=== PATIENT | female | born 1975 ===

== ENCOUNTER 2021-03-26 18:11 | Emergency (ER) | payer BC, OTHER ==
[~2021-03-26] VITALS: Ht 177.8 cm; Wt 95.3 kg
--- NOTE | 2021-03-26 18:20 | NUR ---
Pt BIB [facility] 84 for [place] a [place]. Per EMS pt was found agitated and intoxicated and yelling at bystanders. Per EMS pt also had 5 year old son with her and son is currently with [employer]. [employer] noted to be with pt, and handcuffed on bilateral wrist. No open wounds noted to wrist area from hand cuffs. Pt noted to be altered and agitated, unable to redirect or follow simple commands. Dr. Brown at bedside upon arrival.
--- NOTE | 2021-03-26 18:22 | NUR ---
Ann placed on 4 pt restraints per MD order.
--- NOTE | 2021-03-26 18:26 | NUR ---
code rodriguez called.
--- NOTE | 2021-03-26 18:26 | NUR ---
ANAIS Franklin [id number] and Bon [id number] at bedside.
[2021-03-26] MEDS ORDERED: OLANZAPINE 10 MG VIAL IM ONE ×2 (18:27→18:30)
[2021-03-26] MEDS ORDERED: IV NORMAL SALINE 1000 ML BAG IV ONE (18:30)
--- NOTE | 2021-03-26 18:40 | NUR ---
Dr. Johnson came to bedside.
[2021-03-26 18:46] LABS: BASOPHILS # (AUTO) 0.1 K/uL (0.0-8.0); BASOPHILS % (AUTO) 0.6 % (0.0-2.0); EOSINOPHILS # (AUTO) 0.2 K/uL (0.0-0.7); EOSINOPHILS % (AUTO) 1.8 % (0.0-7.0); HEMATOCRIT 38.5 % (31.2-41.9); LYMPHOCYTES # (AUTO) 2.8 K/uL (20.0-40.0); MEAN CORPUSCULAR HEMOGLOBIN 32.3 uug (24.7-32.8); MEAN CORPUSCULAR HGB CONC 34 g/dL (32.3-35.6); MEAN CORPUSCULAR VOLUME 95.6 fL (75.5-95.3); MONOCYTES # (AUTO) 0.4 K/uL (2.0-10.0); MONOCYTES % (AUTO) 4.3 % (0.0-11.0); NEUTROPHILS # (AUTO) 5.3 K/uL (1.8-8.9); NEUTROPHILS % (AUTO) 61.3 % (38.5-71.5); PLATELET COUNT (AUTO) 300 K/uL (179-408); RED BLOOD CELL COUNT(AUTO) 4.02 MIL/uL (3.63-4.92); WHITE BLOOD COUNT (AUTO) 8.6 K/uL (3.8-11.8)
--- NOTE | 2021-03-26 18:59 | NUR ---
Pt taken to CT, accompanied by myself and 2 officers.
[2021-03-26 19:00] LABS: CARBON DIOXIDE 22 mmol/L (21-32); CHLORIDE 103 mmol/L (98-107); GLUCOSE 124 mg/dL (74-106); POTASSIUM 3.2 mmol/L (3.5-5.1)
[2021-03-26 19:01] LABS: ACETAMINOPHEN < 2.0 ug/mL (10-30); ALANINE AMINOTRANSFERASE 21 U/L (14-59); ALKALINE PHOSPHATASE 56 U/L (50-136); ASPARTATE AMINOTRANSFERASE 18 U/L (15-37); BILIRUBIN,DIRECT 0.1 mg/dL (0.0-0.2); BILIRUBIN,TOTAL 0.2 mg/dL (0.2-1.0); CREATININE 0.8 mg/dL (0.6-1.3); TOTAL PROTEIN, SERUM 7.3 g/dL (6.4-8.2); UREA NITROGEN, BLOOD 10 mg/dL (7-18)
--- NOTE | 2021-03-26 19:02 | NUR ---
All restraints released at this time. Pt sedated and no longer attempting to remove monitors and kick staff.
[2021-03-26 19:05] LABS: ETHANOL 350 MG/DL (0-0)
--- NOTE | 2021-03-26 19:10 | NUR ---
Pt brought back from CT, attached to monitor.
--- NOTE | 2021-03-26 19:14 | NUR ---
Officer Micheline [id number] at [facility] states pt is to be released from custody at this time and he will file report for child endangerment and son is currently back at the police station and [employer] will take custody of child.
[2021-03-26] MEDS ORDERED: IV D5/ 0.9% NACL 1,000 ML IV ONE (19:15)
--- NOTE | 2021-03-26 19:21 | NUR ---
SBAR report given to Deana FELTON and Sherrie FELTON
--- NOTE | 2021-03-26 19:22 | NUR ---
Recieved report from Kenzie FELTON. Assumed care of pt. at this time. Pt. returned from CT scan. Placed back on monitor, vitals are stable. Spoke with [employer] officers Flaco [id number] and Micheline [id number], state patient is not in custody, however pt.'s 6 year old son is in custody of [employer] of [employer]. They spoke with [employer] worker Erika Burns ([phone]).
[2021-03-26] MEDS ORDERED: MAGNESIUM SULFATE/D5W 100 ML ONE ×2 (19:34→21:57)
[2021-03-26] MEDS ORDERED: HALOPERIDOL LACTATE 5 MG/1 ML VIAL IV ONE (20:00)
[2021-03-26] MEDS ORDERED: diphenhydrAMINE 50 MG/1 ML VIAL IV ONE (20:00)
[2021-03-26] MEDS ORDERED: HALOPERIDOL LACTATE 5 MG/1 ML VIAL ONE (20:06)
[2021-03-26] MEDS ORDERED: diphenhydrAMINE 50 MG/1 ML VIAL ONE (20:07)
[2021-03-26 20:49] LABS: *URINE HCG, QUAL NEGATIVE (NEGATIVE)
[2021-03-26 20:50] LABS: *BILIRUBIN,URIN NEGATIVE (NEGATIVE); *BLOOD, URINE NEGATIVE (NEGATIVE); *CLARITY,URINE CLEAR (CLEAR); *COLOR,URINE LIGHT YELLOW (YELLOW); *KETONES,URINE NEGATIVE (NEGATIVE); *UROBILINOGEN,URINE 0.2 E.U./dl (NORMAL); LEUKOCYTE ESTERASE ,URINE NEGATIVE (NEGATIVE); NITRITE, URINE NEGATIVE (NEGATIVE); UGLUCOSE NEGATIVE (NEGATIVE)
[2021-03-26 21:18] LABS: *AMPHETAMINE, URINE NEGATIVE (NEGATIVE); *CANNABINOID, URINE NEGATIVE (NEGATIVE); *COCCAINE, URINE NEGATIVE (NEGATIVE)
[2021-03-26 21:19] LABS: *OPIATE, URINE NEGATIVE (NEGATIVE); *PHENCYCLIDINE SCREEN,URINE NEGATIVE (NEGATIVE)
[2021-03-26] MEDS: MAGNESIUM SULFATE/D5W 100 ML IV SCH ×2 (21:40→22:40)
--- NOTE | 2021-03-26 21:53 | NUR ---
Pt. is sleeping comfortably in bed. Vitals are stable. IV magnesium infusing. Will continue to monitor.
--- NOTE | 2021-03-26 22:58 | NUR ---
Lincoln Matt from [facility] called at this time; states patients child is in protective custody. Phone # to reach him is [phone].
[2021-03-27] MEDS ORDERED: IV NORMAL SALINE 1000 ML BAG IV ONE (01:00)
--- NOTE | 2021-03-27 03:20 | NUR ---
Pt. AAOx3. Pt. asked about her child, informed pt. that her child is in [employer] custody and that she will be provided contact information for [employer]. Pt. has unsteady gait and will continue to sober up. Vss. Fall risk precautions in place. Will continue to monitor.
--- NOTE | 2021-03-27 05:52 | NUR ---
Pt. resting. vss. Fall precautions in place. Will continue to monitor.
--- NOTE | 2021-03-27 08:15 | NUR ---
Pt is awake, alert and oriented x 4, eating breakfast. NAD noted.
--- NOTE | 2021-03-27 08:38 | NUR ---
IV removed. Catheter intact and site benign. Pressure and 4x4 gauze applied to site. No bleeding noted.
--- NOTE | 2021-03-27 08:38 | NUR ---
Patient discharged to home in stable condition. Written and verbal after care instructions given. Patient verbalizes understanding of instructions. Stressed follow up or return to ER for worsening s/s.
--- NOTE | 2021-03-27 08:45 | NUR ---
Pt ambulated out of ER with steady gait.
== END 2021-03-27 08:45 | disposition home or self-care (01) ==
LOC: ER 18:11 → EDBD 18:11 → ER 03-27 08:45
DX: F10.121 Alcohol abuse with intoxication delirium (principal); Y90.8 Blood alcohol level of 240 mg/100 ml or more; R40.20 Unspecified coma; E87.6 Hypokalemia; Z20.822 Contact with and (suspected) exposure to COVID-19
CPT/HCPCS: 36415; 70450; 72125; 80048; 80076; 80299; 80307; 80320; 81003; 83605 ×2; 84703; 85025; 87040 ×2; 87426; 93005; 96360; 96361; 96365; 96366; 96372; 96375; 99285; J1200; J1630; J3475 ×2; J7042; A4663; C1758; G0480; J2358; J7030